=== PATIENT | male | born 1950 | race Caucasian/White ===

== ENCOUNTER 2023-06-02 00:15 | Emergency (ER) | payer MEDICARE, OTHER ==
[~2023-06-02] VITALS: Ht 177.8 cm; Wt 114.2 kg
[2023-06-02 00:16] VITALS: BP 173/83; TEMP 99.7; O2SAT 99
[2023-06-02] MEDS ORDERED: TRAZ-252 PO (00:30)
[2023-06-02] MEDS ORDERED: DOXY-443 PO (04:48)
[2023-06-02] MEDS ORDERED: DOXYCYCLINE HYCLATE 100MG TABLET PO ONE (04:55)
== END 2023-06-02 05:50 | disposition home or self-care (01) ==
LOC: M ED 00:15
DX: L03.115 Cellulitis of right lower limb (principal); W57.XXXA Bitten or stung by nonvenomous insect and other nonvenomous arthropods, initial encounter; Z88.1 Allergy status to other antibiotic agents